=== PATIENT | female | born 2000 | race African-American/Black ===

== ENCOUNTER 2022-11-16 11:25 | Emergency (ER) | payer OTHER ==
[2022-11-16 11:49] VITALS: BP 129/75; PULSE 60; RESP 18; TEMP 98.4
--- NOTE | 2022-11-16 11:50 | ED ---
General Adult HPI - General Stated complaint: hives/rash Time Seen by Provider: 11/16/22 11:48 Source: patient, RN notes reviewed Mode of arrival: ambulatory Limitations: no limitations - History of Present Illness Initial comments: 22-year-old female presents emergency department for rash. Patient states she's had-like rash upper arm is not spreading. Patient states she has no difficulty breathing. Patient states she's. Itchy she believes she came in contact with something. Denies any contacts with some her symptoms. Denies any new soaps lotions detergents no new medications. Denies any new environments. - Related Data Home Medications Medication Instructions Recorded Confirmed No Known Home Medications 11/16/22 11/16/22 Previous Rx's Medication Instructions Recorded hydrOXYzine HCL [Atarax] 25 mg PO TID PRN #15 tab 11/16/22 predniSONE 50 mg PO DAILY #5 tab 11/16/22 Allergies Allergy/AdvReac Type Severity Reaction Status Date / Time No Known Allergies Allergy Verified 11/16/22 11:49 Review of Systems ROS Statement: Those systems with pertinent positive or pertinent negative responses have been documented in the HPI. ROS Other: All systems not noted in ROS Statement are negative. General Exam Limitations: no limitations General appearance: alert, in no apparent distress Head exam: Present: atraumatic, normocephalic, normal inspection Eye exam: Present: normal appearance, PERRL, EOMI. Absent: scleral icterus, conjunctival injection, periorbital swelling ENT exam: Present: normal exam, normal oropharynx, mucous membranes moist Neck exam: Present: normal inspection, full ROM. Absent: tenderness, menin gismus, lymphadenopathy Respiratory exam: Present: normal lung sounds bilaterally. Absent: respiratory distress, wheezes, rales, rhonchi, stridor Cardiovascular Exam: Present: regular rate, normal rhythm, normal heart sounds. Absent: systolic murmur, diastolic murmur, rubs, gallop, clicks Neurological exam: Present: alert Skin exam: Present: warm, dry, intact, normal color, rash Course Vital Signs 11/16/22 11:46 Temperature 98.4 F Pulse Rate 60 Respiratory 18 Rate Blood Pressure 129/75 O2 Sat by Pulse 99 Oximetry Medical Decision Making - Medical Decision Making Was pt. sent in by a medical professional or institution (, PA, CORRECTION OFFICER SUPERVISOR, urgent care, hospital, or alf...) When possible be specific @ -No Did you speak to anyone other than the patient for history (EMS, parent, family, police, friend...)? What history was obtained from this source @ -No Did you review nursing and triage notes (agree or disagree)? Why? @ -I reviewed and agree with nursing and triage notes Were old charts reviewed (outside hosp., previous admission, EMS record, old EKG, old radiological studies, urgent care reports/EKG's, alf records)? Report findings @ -No old charts were reviewed Differential Diagnosis (chest pain, altered mental status, abdominal pain women, abdominal pain men, vaginal bleeding, weakness, fever, dyspnea, syncope, headache, dizziness, GI bleed, back pain, seizure, CVA, palpatations, mental health, musculoskeletal)? @ -ALLERGIC reaction, scabies, bedbugs, medication reaction, this list is not on glycerin EKG interpreted by me (3pts min.). @ -None X-rays interpreted by me (1pt min.). @ -None done CT interpreted by me (1pt min.). @ -None done U/S interpreted by me (1pt. min.). @ -None done What testing was considered but not performed or refused? (CT, X-rays, U/S, labs)? Why? @ -None What meds were considered but not given or refused? Why? @ -None Did you discuss the management of the patient with other professionals (professionals i.e. , PA, CORRECTION OFFICER SUPERVISOR, lab, RT, psych nurse, social work coordinator, forest law and policy professor, teacher, dairy quality assurance officer, case management coordinator)? Give summary @ -No Was smoking cessation discussed for >3mins.? @ -No Was critical care preformed (if so, how long)? @ -No Were there social determinants of health that impacted care today? How? (Homelessness, low income, unemployed, alcoholism, drug addiction, transportation, low edu. Level, literacy, decrease access to med. care, alf, rehab)? @ -No Was there de-escalation of care discussed even if they declined (Discuss DNR or withdrawal of care, Hospice)? DNR status @ -No What co-morbidities impacted this encounter? (DM, HTN, Smoking, COPD, CAD, Cancer, CVA, ARF, Chemo, Hep., AIDS, mental health diagnosis, sleep apnea, morbid obesity)? @ -None Was patient admitted / discharged? Hospital course, mention meds given and route, prescriptions, significant lab abnormalities, going to OR and other pertinent info. @ -Discharge patient appears to have ALLERGIC reaction, contact dermatitis. Patient started prednisone was given Atarax for itching she can continue topical creams or use Benadryl as directed. Undiagnosed new problem with uncertain prognosis? @ -No Drug Therapy requiring intensive monitoring for toxicity (Heparin, Nitro, Insulin, Cardizem)? @ -No Were any procedures done? @ -No Diagnosis/symptom? @ -ALLERGIC reaction, contact dermatitis Acute, or Chronic, or Acute on Chronic? @ -Acute Uncomplicated (without systemic symptoms) or Complicated (systemic symptoms)? @ -Uncomplicated Side effects of treatment? @ -No Exacerbation, Progression, or Severe Exacerbation? @ -No Poses a threat to life or bodily function? How? (Chest pain, [place], [place], pneumonia, PE, COPD, DKA, ARF, appy, cholecystitis, CVA, Diverticulitis, Homicidal, Suicidal, threat to staff... and all critical care pts) @ -No Disposition Clinical Impression: Contact dermatitis, Allergic reaction Disposition: HOME SELF-CARE Condition: Stable Instructions (If sedation given, give patient instructions): General Allergic Reaction (ED) Additional Instructions: Please return to the Emergency Department if symptoms worsen or any other concerns. Prescriptions: hydrOXYzine HCL [Atarax] 25 mg PO TID PRN #15 tab PRN Reason: Itching predniSONE 50 mg PO DAILY #5 tab Is patient prescribed a controlled substance at d/c from ED?: No Referrals: None,Stated [Primary Care Provider] - 1-2 days Time of Disposition: 11:50
== END 2022-11-16 12:06 | disposition home or self-care (01) ==
LOC: EC 11:25
DX: L25.9 Unspecified contact dermatitis, unspecified cause (principal)
CPT/HCPCS: 99282

== ENCOUNTER 2022-11-17 20:43 | Emergency (ER) | payer OTHER ==
[2022-11-17 20:51] VITALS: RESP 18; TEMP 97.9
[2022-11-17] MEDS ORDERED: SODIUM CHLORIDE 0.9% 1,000 ML IV STA (21:32)
[2022-11-17] MEDS ORDERED: KETOROLAC 15 MG/ML 1 ML VIAL IVP STA (21:46)
[2022-11-17 22:21] LABS: Anisocytosis Slight; Basophils % (A) 0 %; Eosinophils % (A) 1 %; HCT 33.4 % (34.0-46.0); HGB 9.9 gm/dL (11.4-16.0); Hypochromasia Marked; Lymphocytes # (A) 0.6 k/uL (1.0-4.8); Lymphocytes % (A) 7 %; MCHC 29.6 g/dL (31.0-37.0); Mean Platelet Volume 7.4; Microcytosis Moderate; Monocytes # (A) 0.1 k/uL (0-1.0); Monocytes % (A) 2 %; Neutrophils % (A) 90 %; Platelet Count 289 k/uL (150-450); RBC 4.71 m/uL (3.80-5.40); RDW 16.5 % (11.5-15.5); WBC 7.8 k/uL (3.8-10.6)
[2022-11-17 22:29] LABS: INR 0.9 (<1.2); Partial Thromboplastin Time 22.2 sec (22.0-30.0); Prothrombin Time 9.7 sec (9.0-12.0)
[2022-11-17 22:37] LABS: Appearance,Urine Clear (Clear); Bacteria,Urine Rare /hpf; Bilirubin,Urine Negative (Negative); Blood,Urine Negative (Negative); Color,Urine Colorless; Glucose,Urine (UA) Negative (Negative); Ketones,Urine Negative (Negative); Leukocyte Esterase,Urine Small (Negative); Mucus,Urine Rare /hpf; Nitrite,Urine Negative (Negative); PH, Urine 7.5 (5.0-8.0); Protein,Urine Negative (Negative); RBC,Urine <1 /hpf (0-5); Specific Gravity,Urine 1.007 (1.001-1.035); Squamous Epithelial Cell,Urine 3 /hpf (0-4); Urobilinogen,Urine <2.0 mg/dL (<2.0); WBC,Urine 3 /hpf (0-5)
[2022-11-17 22:43] LABS: ALT 26 U/L (4-34); AST 24 U/L (14-36); African American GFR (CKD) >90 (>60 ml/min/1.73 sqM); Albumin 4.1 g/dL (3.5-5.0); Alkaline Phosphatase 64 U/L (38-126); Amylase 52 U/L (30-110); Anion Gap 10 mmol/L; Blood Urea Nitrogen 15 mg/dL (7-17); Calcium 9.2 mg/dL (8.4-10.2); Carbon Dioxide 22 mmol/L (22-30); Chloride 104 mmol/L (98-107); Glucose 115 mg/dL (74-99); Lipase 38 U/L (23-300); Non-African American GFR(CKD) >90 (>60 ml/min/1.73 sqM); Potassium 4.6 mmol/L (3.5-5.1); Sodium 136 mmol/L (137-145); Total Bilirubin 0.3 mg/dL (0.2-1.3); Total Protein 7.7 g/dL (6.3-8.2)
--- NOTE | 2022-11-17 23:18 | US ---
EXAMINATION TYPE: US renals and bladder DATE OF EXAM: 11/17/2022 COMPARISON: NONE CLINICAL INDICATION: Female, 22 years old with history of right flank pain; Right flank pain EXAM MEASUREMENTS: Right Kidney: 11.2 x 4.3 x 4.6 cm Left Kidney: 13.2 x 5.7 x 4.9 cm Right Kidney: No hydronephrosis or masses seen Left Kidney: No hydronephrosis or masses seen Bladder: wnl Bilateral Jets seen: Yes There is no evidence for hydronephrosis at this point in time. No nephrolithiasis is seen. No guicho s are identified. The urinary bladder is anechoic. Bilateral ureteral jets are seen. IMPRESSION: No obstructive uropathy.
--- NOTE | 2022-11-17 23:19 | US ---
EXAMINATION TYPE: US pelvis complete with doppler DATE OF EXAM: 11/17/2022 COMPARISON: NONE CLINICAL INDICATION: Female, 22 years old with history of right flank pain, evaluate for torsion; RLQ pain. TECHNIQUE: Transabdominal sonographic images of the pelvis were acquired. Pt refused transvaginal exam Date of LMP: 3 weeks ago EXAM MEASUREMENTS: Uterus: 10.1 x 6.3 x 3.5 cm Endometrial Stripe: 1.0 cm Right Ovary: Not sure if visualized. A lot of peristalsing bowel seen in rt adnexa Left Ovary: 3.0 x 1.9 x 1.6 cm 1. Uterus: Anteverted wnl 2. Endometrium: wnl 3. Right Ovary: Limited 4. Left Ovary: wnl Spectral, color and waveform doppler imaging shows good arterial and venous flow within the ovaries; there is no evidence for ovarian torsion. 5. Bilateral Adnexa: wnl 6. Posterior cul-de-sac: Some free fluid seen, presumably physiologic. IMPRESSION: 1. No evidence for acute pelvic process. 2. Nonvisualization of the right ovary secondary to bowel. MTDD
[2022-11-17 23:23] VITALS: BP 117/63; PULSE 67
--- NOTE | 2022-11-17 23:41 | ED ---
General Adult HPI - General Chief complaint: Abdominal Pain Stated complaint: Abdominal pain Time Seen by Provider: 11/17/22 21:24 Source: patient, RN notes reviewed, old records reviewed Mode of arrival: EMS Limitations: no limitations - History of Present Illness Initial comments: Patient is a 22-year-old female presents emergency Department complaining of abdominal pain. States it is on the right side of her abdomen and points to her right flank. It does not move. Worse with movement as well as with palpation at that site. Denies any nausea, vomiting, diarrhea, constipation. No other associated symptoms at this time. Denies any vaginal discharge or bleeding. No history of ovarian cysts or torsion. No urinary complaints. Presents for further evaluation of a concern for her pain. She is resting comfortably in bed at this time. - Related Data Home Medications Medication Instructions Recorded Confirmed No Known Home Medications 11/16/22 11/16/22 Previous Rx's Medication Instructions Recorded hydrOXYzine HCL [Atarax] 25 mg PO TID PRN #15 tab 11/16/22 predniSONE 50 mg PO DAILY #5 tab 11/16/22 Allergies Allergy/AdvReac Type Severity Reaction Status Date / Time No Known Allergies Allergy Verified 11/17/22 20:51 Review of Systems ROS Statement: Those systems with pertinent positive or pertinent negative responses have been documented in the HPI. Review of Systems: CONST: Denies fever EYES: Denies blurry vision ENT: Denies nasal congestion C/V: Denies Chest pain RESP: Denies shortness of breath GI: Endorses abdominal pain : Denies dysuria SKIN: Denies rash. MSK: Denies joint pain. NEURO: Denies headache ROS Other: All systems not noted in ROS Statement are negative. Past Medical History Past Medical History: No Reported History History of Any Multi-Drug Resistant Organisms: None Reported Past Surgical History: No Surgical Hx Reported Past Psychological History: No Psychological Hx Reported Smoking Status: Current every day smoker, Vaper Past Alcohol Use History: None Reported Past Drug Use History: Marijuana General Exam - General Exam Comments Initial Comments: General: Appears in no acute distress. HEAD: Normal with no signs of head trauma. EYES: EOMI ENT: Hearing grossly intact, normal oropharynx. RESPIRATORY: Clear breath sounds bilaterally. No wheezes, rales, or rhonchi. C/V: Regular rate and rhythm. S1 and S2 auscultated, no edema, peripheral pulses 2+ and intact throughout ABD: Abdomen soft, nontender, nondistended. Area of pain is in the right flank but minimal tenderness on palpation. No guarding. No peritoneal signs. No rebound tenderness. Unremarkable exam. No CVA tenderness to percussion. EXT: Normal range of motion, no obvious deformity SKIN: No rashes or lesions observed on exposed skin. NEURO: Alert and oriented 4. Limitations: no limitations Course Vital Signs 11/17/22 11/17/22 20:46 23:21 Temperature 97.9 F Pulse Rate 71 67 Respiratory 18 18 Rate Blood Pressure 144/75 117/63 O2 Sat by Pulse 98 99 Oximetry Medical Decision Making - Medical Decision Making Was pt. sent in by a medical professional or institution (, PA, FINANCIAL ADVOCATE, urgent care, hospital, or usp...) When possible be specific @ -No Did you speak to anyone other than the patient for history (EMS, parent, family, police, friend...)? What history was obtained from this source @ -No Did you review nursing and triage notes (agree or disagree)? Why? @ -I reviewed and agree with nursing and triage notes Were old charts reviewed (outside hosp., previous admission, EMS record, old EKG, old radiological studies, urgent care reports/EKG's, usp records)? Report findings @ -No old charts were reviewed Differential Diagnosis (chest pain, altered mental status, abdominal pain women, abdominal pain men, vaginal bleeding, weakness, fever, dyspnea, syncope, headache, dizziness, GI bleed, back pain, seizure, CVA, palpatations, mental health, musculoskeletal)? @ -Differential Abdominal Pain Women: Appendicitis, Cholecystitis, diverticulosis, ischemic bowel, pancreatitis, hepa titis, UTI, gastroenteritis, AAA, incarcerated hernia, bowel obstruction, constipation, inflammatory bowel, hepatitis, peptic ulcer disease, splenic infarction, perforated viscus, vulvitis, ovarian torsion, PID, kidney stone, placenta abruption, this is not meant to be an all-inclusive list EKG interpreted by me (3pts min.). @ -None done X-rays interpreted by me (1pt min.). @ -None done CT interpreted by me (1pt min.). @ -None done U/S interpreted by me (1pt. min.). @ -Pelvic ultrasound revealed no obvious evidence of torsion although diffic ulty with feeling the right ovary. Renal ultrasound revealed no evidence of hydronephrosis or stone. Interpreted by radiology. What testing was considered but not performed or refused? (CT, X-rays, U/S, labs)? Why? @ -None What meds were considered but not given or refused? Why? @ -None Did you discuss the management of the patient with other professionals (professionals i.e. , PA, FINANCIAL ADVOCATE, lab, RT, psych nurse, perinatal social worker, picture framer, teacher, complaint evaluation officer, insurance case manager)? Give summary @ -No Was smoking cessation discussed for >3mins.? @ -No Was critical care preformed (if so, how long)? @ -No Were there social determinants of health that impacted care today? How? (Homelessness, low income, unemployed, alcoholism, drug addiction, transportation, low edu. Level, literacy, decrease access to med. care, long term, rehab)? @ -No Was there de-escalation of care discussed even if they declined (Discuss DNR or withdrawal of care, Hospice)? DNR status @ -No What co-morbidities impacted this encounter? (DM, HTN, Smoking, COPD, CAD, Cancer, CVA, ARF, Chemo, Hep., AIDS, mental health diagnosis, sleep apnea, morbid obesity)? @ -None Was patient admitted / discharged? Hospital course, mention meds given and route, prescriptions, significant lab abnormalities, going to OR and other pertinent info. @ -Based on the patient's presentation and physical exam, patient presents complaining of abdominal pain of unknown etiology. Exam is unremarkable. Vital signs within normal limits. She is resting comfortably. He is in no distress. Appears to have right flank pain. We'll obtain abdominal labs as well as screening ultrasounds. Due to her age, we'll avoid CT imaging if possible. The family and patient were in agreement this plan. Patient was given a 1 L fluid bolus as well as IV Toradol for pain. Labs are remarkable for an anemia that is microcytic and likely chronic. Remainder of the labs are within acceptable limits. Lactic acid is within normal limits. Patient is not . Imaging is unremarkable although there was a difficult time evaluating and seeing the right ovary. I instructed the patient to follow up with their PCP in the next 1-3 days. I explained that the patient should return to the emergency department if they experience any worsening symptoms. Strict return precautions were discussed with the patient. The patient expressed understanding of these instructions. I answered all questions that the patient had. The patient was discharged home in good condition with their prescriptions and follow up information. Undiagnosed new problem with uncertain prognosis? @ -No Drug Therapy requiring intensive monitoring for toxicity (Heparin, Nitro, Insulin, Cardizem)? @ -No Were any procedures done? @ -No Diagnosis/symptom? @ -Abdominal pain of unknown etiology Acute, or Chronic, or Acute on Chronic? @ -Acute Uncomplicated (without systemic symptoms) or Complicated (systemic symptoms)? @ -Uncomplicated Side effects of treatment? @ -No Exacerbation, Progression, or Severe Exacerbation? @ -No Poses a threat to life or bodily function? How? (Chest pain, [place], [place], pneumonia, PE, COPD, DKA, ARF, appy, cholecystitis, CVA, Diverticulitis, Homicidal, Suicidal, threat to staff... and all critical care pts) @ -No Diagnosis/symptom? @ -Microcytic anemia Acute, or Chronic, or Acute on Chronic? @ -Unknown, likely chronic Uncomplicated (without systemic symptoms) or Complicated (systemic symptoms)? @ -Uncomplicated Side effects of treatment? @ -none Exacerbation, Progression, or Severe Exacerbation] @ -no Poses a threat to life or bodily function? @ -no - Lab Data Result diagrams: 11/17/22 21:59 11/17/22 21:59 Lab Results 11/17/22 11/17/22 11/17/22 Range/Units 21:05 21:05 21:59 WBC 7.8 (3.8-10.6) k/uL RBC 4.71 (3.80-5.40) m/uL Hgb 9.9 L (11.4-16.0) gm/dL Hct 33.4 L (34.0-46.0) % MCV 71.0 L (80.0-100.0) fL MCH 21.0 L (25.0-35.0) pg MCHC 29.6 L (31.0-37.0) g/dL RDW 16.5 H (11.5-15.5) % Plt Count 289 (150-450) k/uL MPV 7.4 Neutrophils % 90 % Lymphocytes % 7 % Monocytes % 2 % Eosinophils % 1 % Basophils % 0 % Neutrophils # 7.0 (1.3-7.7) k/uL Lymphocytes # 0.6 L (1.0-4.8) k/uL Monocytes # 0.1 (0-1.0) k/uL Eosinophils # 0.0 (0-0.7) k/uL Basophils # 0.0 (0-0.2) k/uL Hypochromasia Marked Anisocytosis Slight Microcytosis Moderate PT (9.0-12.0) sec INR (<1.2) APTT (22.0-30.0) sec Sodium (137-145) mmol/L Potassium (3.5-5.1) mmol/L Chloride (98-107) mmol/L Carbon Dioxide (22-30) mmol/L Anion Gap mmol/L BUN (7-17) mg/dL Creatinine (0.52-1.04) mg/dL Est GFR (CKD-EPI)AfAm (>60 ml/min/1.73 sqM) Est GFR (CKD-EPI)NonAf (>60 ml/min/1.73 sqM) Glucose (74-99) mg/dL Plasma Lactic Acid Amando (0.7-2.0) mmol/L Calcium (8.4-10.2) mg/dL Total Bilirubin (0.2-1.3) mg/dL AST (14-36) U/L ALT (4-34) U/L Alkaline Phosphatase (38-126) U/L Total Protein (6.3-8.2) g/dL Albumin (3.5-5.0) g/dL Amylase (30-110) U/L Lipase (23-300) U/L Urine Color Colorless Urine Appearance Clear (Clear) Urine pH 7.5 (5.0-8.0) Ur Specific [place] 1.007 (1.001-1.035) Urine Protein Negative (Negative) Urine Glucose (UA) Negative (Negative) Urine Ketones Negative (Negative) Urine Blood Negative (Negative) Urine Nitrite Negative (Negative) Urine Bilirubin Negative (Negative) Urine Urobilinogen <2.0 (<2.0) mg/dL Ur Leukocyte Esterase Small H (Negative) Urine RBC <1 (0-5) /hpf Urine WBC 3 (0-5) /hpf Ur Squamous Epith Cells 3 (0-4) /hpf Urine Bacteria Rare H (None) /hpf Urine Mucus Rare H (None) /hpf Urine HCG, Qual Not Detected (Not Detectd) 11/17/22 11/17/22 11/17/22 Range/Units 21:59 21:59 21:59 WBC (3.8-10.6) k/uL RBC (3.80-5.40) m/uL Hgb (11.4-16.0) gm/dL Hct (34.0-46.0) % MCV (80.0-100.0) fL MCH (25.0-35.0) pg MCHC (31.0-37.0) g/dL RDW (11.5-15.5) % Plt Count (150-450) k/uL MPV Neutrophils % % Lymphocytes % % Monocytes % % Eosinophils % % Basophils % % Neutrophils # (1.3-7.7) k/uL Lymphocytes # (1.0-4.8) k/uL Monocytes # (0-1.0) k/uL Eosinophils # (0-0.7) k/uL Basophils # (0-0.2) k/uL Hypochromasia Anisocytosis Microcytosis PT 9.7 (9.0-12.0) sec INR 0.9 (<1.2) APTT 22.2 (22.0-30.0) sec Sodium 136 L (137-145) mmol/L Potassium 4.6 (3.5-5.1) mmol/L Chloride 104 (98-107) mmol/L Carbon Dioxide 22 (22-30) mmol/L Anion Gap 10 mmol/L BUN 15 (7-17) mg/dL Creatinine 0.54 (0.52-1.04) mg/dL Est GFR (CKD-EPI)AfAm >90 (>60 ml/min/1.73 sqM) Est GFR (CKD-EPI)NonAf >90 (>60 ml/min/1.73 sqM) Glucose 115 H (74-99) mg/dL Plasma Lactic Acid Amando 0.7 (0.7-2.0) mmol/L Calcium 9.2 (8.4-10.2) mg/dL Total Bilirubin 0.3 (0.2-1.3) mg/dL AST 24 (14-36) U/L ALT 26 (4-34) U/L Alkaline Phosphatase 64 (38-126) U/L Total Protein 7.7 (6.3-8.2) g/dL Albumin 4.1 (3.5-5.0) g/dL Amylase 52 (30-110) U/L Lipase 38 (23-300) U/L Urine Color Urine Appearance (Clear) Urine pH (5.0-8.0) Ur Specific [place] (1.001-1.035) Urine Protein (Negative) Urine Glucose (UA) (Negative) Urine Ketones (Negative) Urine Blood (Negative) Urine Nitrite (Negative) Urine Bilirubin (Negative) Urine Urobilinogen (<2.0) mg/dL Ur Leukocyte Esterase (Negative) Urine RBC (0-5) /hpf Urine WBC (0-5) /hpf Ur Squamous Epith Cells (0-4) /hpf Urine Bacteria (None) /hpf Urine Mucus (None) /hpf Urine HCG, Qual (Not Detectd) Disposition Clinical Impression: Abdominal pain of unknown etiology, Microcytic anemia Disposition: HOME SELF-CARE Condition: Good Instructions (If sedation given, give patient instructions): Abdominal Pain (ED) Is patient prescribed a controlled substance at d/c from ED?: No Referrals: Nonstaff,Physician [Primary Care Provider] - 1-2 days Forms: Area PCPs Time of Disposition: 23:32
== END 2022-11-18 00:01 | disposition home or self-care (01) ==
LOC: EC 20:43
DX: D50.9 Iron deficiency anemia, unspecified (principal); R10.9 Unspecified abdominal pain; F17.290 Nicotine dependence, other tobacco product, uncomplicated; F12.90 Cannabis use, unspecified, uncomplicated
CPT/HCPCS: 36415; 80053; 82150; 83605; 83690; 85025; 85610; 85730; 81001; 81025; 76856; 76770; 99285; 96374; J1885; 76857; 93976

== ENCOUNTER 2022-12-11 04:57 | Emergency (ER) | payer OTHER ==
[2022-12-11 05:01] VITALS: RESP 18
--- NOTE | 2022-12-11 05:18 | ED ---
Extremity Problem HPI - General Source: patient, RN notes reviewed, old records reviewed Mode of arrival: ambulatory Limitations: no limitations - History of Present Illness MD Complaint: extremity pain, extremity swelling -: days(s) Location: right, lower extremity, knee -: Yes arthralgia Radiation: none Severity scale (1-10): 7 Quality: sharp Consistency: constant, intermittent Improves with: nothing Worsens with: nothing Associated Symptoms: denies other symptoms <Manny Armas - Last Filed: 12/11/22 05:16> <Symone Mello - Last Filed: 12/15/22 10:53> - General Chief complaint: Extremity Problem,Nontraumatic Stated complaint: Numbness and tingling in right leg Time Seen by Provider: 12/11/22 05:03 - History of Present Illness Initial comments: This is a 22-year-old female DF for evaluation of right lower Shorty pain tenderness Severe pain worse when she walks brings her to her knees. Patient states sometimes she cannot even take a step. No trauma no history of blood clot no shortness of breath or chest pain. No travel history sick contacts. (Manny Armas) - Related Data Home Medications Medication Instructions Recorded Confirmed No Known Home Medications 11/16/22 11/16/22 Previous Rx's Medication Instructions Recorded hydrOXYzine HCL [Atarax] 25 mg PO TID PRN #15 tab 11/16/22 predniSONE 50 mg PO DAILY #5 tab 11/16/22 Allergies Allergy/AdvReac Type Severity Reaction Status Date / Time No Known Allergies Allergy Verified 12/11/22 04:59 Review of Systems ROS Other: All systems not noted in ROS Statement are negative. <Manny Armas - Last Filed: 12/11/22 05:16> ROS Other: All systems not noted in ROS Statement are negative. <Symone Mello - Last Filed: 12/15/22 10:53> ROS Statement: Those systems with pertinent positive or pertinent negative responses have been documented in the HPI. Past Medical History Past Medical History: No Reported History History of Any Multi-Drug Resistant Organisms: None Reported Past Surgical History: No Surgical Hx Reported Past Psychological History: No Psychological Hx Reported Smoking Status: Current every day smoker, Vaper Past Alcohol Use History: None Reported Past Drug Use History: Marijuana <Manny Armas - Last Filed: 12/11/22 05:16> General Exam Limitations: no limitations General appearance: alert, in no apparent distress Head exam: Present: atraumatic, normocephalic, normal inspection Eye exam: Present: normal appearance, PERRL, EOMI. Absent: scleral icterus, conjunctival injection, periorbital swelling ENT exam: Present: normal exam, mucous membranes moist Neck exam: Present: normal inspection. Absent: tenderness, meningismus, lymphadenopathy Respiratory exam: Present: normal lung sounds bilaterally. Absent: respiratory distress, wheezes, rales, rhonchi, stridor Cardiovascular Exam: Present: regular rate, normal rhythm, normal heart sounds. Absent: systolic murmur, diastolic murmur, rubs, gallop, clicks GI/Abdominal exam: Present: soft, normal bowel sounds. Absent: distended, tenderness, guarding, rebound, rigid Extremities exam: Present: normal inspection, full ROM, normal capillary refill. Absent: tenderness, pedal edema, joint swelling, calf tenderness Back exam: Present: normal inspection Neurological exam: Present: alert, oriented X3, CN II-XII intact Psychiatric exam: Present: normal affect, normal mood Skin exam: Present: warm, dry, intact, normal color. Absent: rash <Manny Armas - Last Filed: 12/11/22 05:16> Course <Manny Armas - Last Filed: 12/11/22 05:16> Vital Signs 12/11/22 12/11/22 04:59 09:43 Temperature 97.2 F L 97.4 F L Pulse Rate 82 68 Respiratory 18 18 Rate Blood Pressure 124/77 122/84 O2 Sat by Pulse 98 98 Oximetry - Reevaluation(s) Reevaluation #1: 12/11/22 05:17 Medical records reviewed (Manny Armas) Reevaluation #4: 12/11/22 05:17 Was pt. sent in by a medical professional or institution? @ -no Did you speak to anyone other than the patient for history? @ -no Did you review nursing and triage notes? @ -agree Were old charts reviewed? @ -yes Differential Diagnosis? @ -prior EKG interpreted by me (3pts min.)? @ -yes X-rays interpreted by me (1pt min.)? @ -yes CT interpreted by me (1pt min.)? @ -no U/S interpreted by me (1pt. min.)? @ -no What testing was considered but not performed? (CT, X-rays, U/S, labs)? Why? @ -no What meds were considered but not given? Why? @ -no Did you discuss the management of the patient with other professionals? @ -no Did you reconcile home meds? @ -no Was smoking cessation discussed for >3mins.? @ -no Was critical care preformed (if so, how long)? @ -no Were there social determinants of health that impacted care today? How? (Homelessness, low income, unemployed, alcoholism, drug addiction, transportation, low edu. Level, literacy, decrease access to med. care, long-term, rehab)? @ -no Was there de-escalation of care discussed even if they declined? (Discuss DNR or withdrawal of care, Hospice)? @ -no What co-morbidities impacted this encounter? (DM, HTN, Smoking, COPD, CAD, Cancer, CVA, Hep., AIDS, mental health diagnosis, sleep apnea, morbid obesity)? @ -none Was patient admitted / discharged? @ - Undiagnosed new problem with uncertain prognosis? @ -no Drug Therapy requiring intensive monitoring for toxicity (Heparin, Nitro, Insulin, Cardizem)? @ -no Were any procedures done? @ -no Diagnosis/symptom? @ - Acute, or Chronic, or Acute on Chronic? @ -acute Uncomplicated (without systemic symptoms) or Complicated (systemic symptoms)? @ -complicated Side effects of treatment? @ -no Exacerbation, Progression, or Severe Exacerbation] @ -no Poses a threat to life or bodily function? @ -yes (Manny Armas) Medical Decision Making <Symone Mello - Last Filed: 12/15/22 10:53> - Medical Decision Making Patient signed out to me pending US. US negative for DVT. Patient comfortable for discharge home. (Symone Mello) Disposition <Manny Armas - Last Filed: 12/11/22 05:16> Is patient prescribed a controlled substance at d/c from ED?: No Time of Disposition: 09:11 <Symone Mello - Last Filed: 12/15/22 10:53> Clinical Impression: Leg pain Disposition: HOME SELF-CARE Condition: Stable Instructions (If sedation given, give patient instructions): Leg Pain (ED) Additional Instructions: Please follow-up with your primary care doctor for further testing. Return for any new or worsening symptoms Referrals: Tayo Esteban MD [Primary Care Provider] - 1-2 days
--- NOTE | 2022-12-11 08:38 | US ---
EXAMINATION TYPE: US venous doppler duplex LE RT DATE OF EXAM: 12/11/2022 7:46 AM COMPARISON: NONE CLINICAL INDICATION: Female, 22 years old with history of pain; rt leg numbness SIDE PERFORMED: Right TECHNIQUE: The lower extremity deep venous system is examined utilizing real time linear array sonog ariel with graded compression, doppler sonography and color-flow sonography. VESSELS IMAGED: Common Femoral Vein Deep Femoral Vein Greater Saphenous Vein * Femoral Vein Popliteal Vein Small Saphenous Vein * Proximal Calf Veins (* superficial vessels) Right Leg: Negative for DVT IMPRESSION: 1. Right lower extremity ultrasound negative for deep venous thrombosis
[2022-12-11 09:46] VITALS: BP 122/84; PULSE 68; TEMP 97.4
== END 2022-12-11 09:47 | disposition home or self-care (01) ==
LOC: EC 04:57
DX: M79.604 Pain in right leg (principal); F17.290 Nicotine dependence, other tobacco product, uncomplicated; F12.90 Cannabis use, unspecified, uncomplicated
CPT/HCPCS: 99284

== ENCOUNTER 2023-04-05 22:23 | Emergency (ER) | payer OTHER ==
--- NOTE | 2023-04-05 23:08 | ED ---
General Adult HPI - General Source: patient, police Mode of arrival: ambulatory <Manuel Castrejon - Last Filed: 04/06/23 00:33> <Irvni Puentes - Last Filed: 04/06/23 14:13> - General Chief complaint: Psychiatric Symptoms Stated complaint: Petition Time Seen by Provider: 04/05/23 22:59 - History of Present Illness Initial comments: Dictation was produced using [employer] dictation software. please excuse any grammatical, word or spelling errors. Chief Complaint: 23-year-old female presents with suicidal ideation History of Present Illness: Patient 23-year-old female presents to the ER for suicidal ideation and states that she has hand pain after punching a wall. She started to run into traffic. Brought in by piece officers for EPS evaluation. No homicidal ideation. States that she is very stressed out. The ROS documented in this emergency department record has been reviewed and confirmed by me. Those systems with pertinent positive or negative responses have been documented in the HPI. All other systems are other negative and/or noncontributory. (Manuel Castrejon) - Related Data Home Medications Medication Instructions Recorded Confirmed No Known Home Medications 11/16/22 04/06/23 Allergies Allergy/AdvReac Type Severity Reaction Status Date / Time No Known Allergies Allergy Verified 04/06/23 10:51 Review of Systems ROS Other: All systems not noted in ROS Statement are negative. <Manuel Castrejon - Last Filed: 04/06/23 00:33> ROS Other: All systems not noted in ROS Statement are negative. <Irvin Puentes - Last Filed: 04/06/23 14:13> ROS Statement: Those systems with pertinent positive or pertinent negative responses have been documented in the HPI. Past Medical History Past Medical History: No Reported History History of Any Multi-Drug Resistant Organisms: None Reported Past Surgical History: No Surgical Hx Reported Past Psychological History: No Psychological Hx Reported Smoking Status: Current every day smoker, Vaper Past Alcohol Use History: None Reported Past Drug Use History: Marijuana <Manuel Castrejon - Last Filed: 04/06/23 00:33> General Exam <Manuel Castrejon - Last Filed: 04/06/23 00:33> - General Exam Comments Initial Comments: PHYSICAL EXAM: General Impression: Alert and oriented x3, not in acute distress HEENT: Normocephalic atraumatic, extra-ocular movements intact, pupils equal and reactive to light bilaterally, mucous membranes moist. Cardiovascular: Heart regular rate and rhythm Chest: Able to complete full sentences, no retractions, no tachypnea Musculoskeletal: Pulses present and equal in all extremities, no peripheral edema Motor: no focal deficits noted Neurological: CN II-XII grossly intact, no focal motor or sensory deficits noted Skin: Intact with no visualized rashes Psych: Normal affect and mood Right hand: No obvious deformities, palpatory tenderness to the second and third MCP (Manuel Castrejon) Course Vital Signs 04/05/23 04/06/23 22:26 08:00 Temperature 98.8 F 98.1 F Pulse Rate 99 73 Respiratory 18 16 Rate Blood Pressure 143/75 138/83 O2 Sat by Pulse 97 98 Oximetry Medical Decision Making <Manuel Castrejon - Last Filed: 04/06/23 00:33> <Irvin Puentes - Last Filed: 04/06/23 14:13> - Medical Decision Making Was pt. sent in by a medical professional or institution (, PA, DIST[employer]ERY MILLER HELPER, urgent care, hospital, or snf...) When possible be specific @ -No Did you speak to anyone other than the patient for history (EMS, parent, family, police, friend...)? What history was obtained from this source @ -No Did you review nursing and triage notes (agree or disagree)? Why? @ -I reviewed and agree with nursing and triage notes Were old charts reviewed (outside hosp., previous admission, EMS record, old EKG, old radiological studies, urgent care reports/EKG's, snf records)? Report findings @ -No old charts were reviewed Differential Diagnosis (chest pain, altered mental status, abdominal pain women, abdominal pain men, vaginal bleeding, musculoskeletal, weakness, fever, dyspnea, syncope, headache, dizziness, GI bleed, back pain, seizure, CVA, palpatations, mental health)? @ -Differential Mental Health: Depression, anxiety, bipolar, psychosis, schizophrenia, borderline personality, situational depression, adjustment disorder, behavioral disorder, brain tumor, malingering, substance abuse, encephalopathy, medication reaction, dementia, hypothyroidism, degenerative neurologic disorder, lupus.... This is not meant to be all-inclusive list EKG interpreted by me (3pts min.). @ -None done X-rays interpreted by me (1pt min.). @ -X-ray of the right hand shows poor quality film possible carpal malalignment CT interpreted by me (1pt min.). @ -CT of the wrist shows no abnormalities U/S interpreted by me (1pt. min.). @ -None done What testing was considered but not performed or refused? (CT, X-rays, U/S, labs)? Why? @ -None What meds were considered but not given or refused? Why? @ -None Did you discuss the management of the patient with other professionals (professionals i.e. , PA, DIST[employer] M[employer]ER HELPER, lab, RT, psych nurse, social group worker, medical educator, teacher, chief accounting officer, case advocate)? Give summary @ -No Was smoking cessation discussed for >3mins.? @ -No Was critical care preformed (if so, how long)? @ -No Were there social determinants of health that impacted care today? How? (Homelessness, low income, unemployed, alcoholism, drug addiction, transportation, low edu. Level, literacy, decrease access to med. care, nursing home, rehab)? @ -No Was there de-escalation of care discussed even if they declined (Discuss DNR or withdrawal of care, Hospice)? DNR status @ -No What co-morbidities impacted this encounter? (DM, HTN, Smoking, COPD, CAD, Cancer, CVA, ARF, Chemo, Hep., AIDS, mental health diagnosis, sleep apnea, morbid obesity)? @ -None Was patient admitted / discharged? Hospital course, mention meds given and route, prescriptions, significant lab abnormalities, going to OR and other pertinent info. @ -23-year-old female presents to the ER for hand pain and suicidal ideation. Vital signs stable. Patient petitioned by law enforcement. Undiagnosed new problem with uncertain prognosis? @ -No Drug Therapy requiring intensive monitoring for toxicity (Heparin, Nitro, Insulin, Cardizem)? @ -No Were any procedures done? @ -No Diagnosis/symptom? Acute, or Chronic, or Acute on Chronic? Uncomplicated (without systemic symptoms) or Complicated (systemic symptoms)? @ -Suicidal ideation Side effects of treatment? @ -No Exacerbation, Progression, or Severe Exacerbation? @ -No Poses a threat to life or bodily function? How? (Chest pain, [place], [place], pneumonia, PE, COPD, DKA, ARF, appy, cholecystitis, CVA, Diverticulitis, Homicidal, Suicidal, threat to staff... and all critical care pts) @ -No (Manuel Castrejon) Patient was medically cleared by previous physician. Pending psychiatric evaluation. EPS notified me that she does not meet inpatient criteria. She'll be discharged home with a safety plan. I believe this is reasonable. Patient discharged home in good condition. (Irvin Puentes) Disposition <Manuel Castrejon - Last Filed: 04/06/23 00:33> Is patient prescribed a controlled substance at d/c from ED?: No <Irvin Puentes - Last Filed: 04/06/23 14:13> Clinical Impression: Suicidal ideation Disposition: HOME SELF-CARE Condition: Good Additional Instructions: follow safety plan. Referrals: None,Stated [Primary Care Provider] - 1-2 days
--- NOTE | 2023-04-05 23:27 | XR ---
EXAM: XR Right Hand Complete, 3 or More Views CLINICAL HISTORY: ITS.REASON XR Reason: hand pain after punching tree TECHNIQUE: Frontal, lateral and oblique views of the right hand. COMPARISON: No relevant prior studies available. FINDINGS: Bones/joints: Abnormal carpal alignment of the distal radius and proximal carpal row. CT scan recommended. No acute fracture. Soft tissues: Unremarkable. No radiopaque foreign body. IMPRESSION: Abnormal carpal alignment of the distal radius and proximal carpal row. CT scan recommended.
--- NOTE | 2023-04-06 00:10 | CT ---
EXAM: CT Right Upper Extremity Without Intravenous Contrast, Wrist CLINICAL HISTORY: ITS.REASON CT Reason: abnormal x-ray TECHNIQUE: Axial computed tomography images of the right wrist without intravenous contrast. CTDI is 8.6 mGy and DLP is 259 mGy-cm. This CT exam was performed using one or more of the following dose reduction techniques: automated exposure control, adjustment of the mA and/or kV according to patient size, and/or use of iterative reconstruction technique. COMPARISON: No relevant prior studies available. FINDINGS: Bones/joints: Carpal alignment is anatomic. No fracture. Abnormality on x-ray may have been secondary to patient positioning/projection. Soft tissues: Unremarkable. IMPRESSION: Carpal alignment is anatomic. No fracture. Abnormality on x-ray may have been secondary to patient positioning/projection.
[2023-04-06 08:23] VITALS: TEMP 98.1
[2023-04-06] MEDS ORDERED: ACETAMINOPHEN TAB 500 MG TAB PO STA (09:24)
[2023-04-06 14:32] VITALS: BP 127/84; PULSE 72; RESP 18
== END 2023-04-06 14:44 | disposition home or self-care (01) ==
LOC: EC 22:23
DX: R45.851 Suicidal ideations (principal); F17.290 Nicotine dependence, other tobacco product, uncomplicated; F12.90 Cannabis use, unspecified, uncomplicated
CPT/HCPCS: 82075; 99285

== ENCOUNTER 2023-05-19 05:44 | Emergency (ER) | payer OTHER ==
[2023-05-19 06:10] VITALS: PULSE 73
--- NOTE | 2023-05-19 06:25 | ED ---
SOB HPI - General Chief Complaint: Shortness of Breath Stated Complaint: SOB/chest pain Time Seen by Provider: 05/19/23 06:24 Source: patient, EMS, RN notes reviewed Mode of arrival: EMS Limitations: no limitations - History of Present Illness Initial Comments: 23-year-old female presents emergency from via EMS chief complaint shortness breath. Patient states she has centralized Chest discomfort. Patient denies any fever, leg symptoms. Patient states that she has slight pain only when she takes a deep breath. Denies any resting shortness breath or chest pain denies any leg pain or swelling No history DVT or PE no current control. - Related Data Home Medications Medication Instructions Recorded Confirmed No Known Home Medications 11/16/22 04/06/23 Allergies Allergy/AdvReac Type Severity Reaction Status Date / Time No Known Allergies Allergy Verified 05/19/23 05:47 Review of Systems ROS Statement: Those systems with pertinent positive or pertinent negative responses have been documented in the HPI. ROS Other: All systems not noted in ROS Statement are negative. Past Medical History Past Medical History: No Reported History History of Any Multi-Drug Resistant Organisms: None Reported Past Surgical History: No Surgical Hx Reported Past Psychological History: No Psychological Hx Reported Smoking Status: Current every day smoker, Vaper Past Alcohol Use History: None Reported Past Drug Use History: Marijuana General Exam - General Exam Comments Initial Comments: Visual Physical Exam Vital signs reviewed General: Well-appearing, nontoxic, no acute distress. Head: Normocephalic, atraumatic Eyes: PERRLA, EOMI ENT: Airway patent Chest: Nonlabored breathing Skin: No visual rash, normal skin tone Neuro: Alert and oriented 3 Musculoskeletal: No gross abnormalities Limitations: no limitations General appearance: alert, in no apparent distress Head exam: Present: atraumatic, normocephalic, normal inspection Eye exam: Present: normal appearance, PERRL, EOMI. Absent: scleral icterus, conjunctival injection, periorbital swelling ENT exam: Present: normal exam, normal oropharynx, mucous membranes moist Neck exam: Present: normal inspection, full ROM. Absent: tenderness, meningismus, lymphadenopathy Respiratory exam: Present: normal lung sounds bilaterally, chest wall tenderness (Anterior chest wall). Absent: respiratory distress, wheezes, rales, rhonchi, stridor Cardiovascular Exam: Present: regular rate, normal rhythm, normal heart sounds. Absent: systolic murmur, diastolic murmur, rubs, gallop, clicks Course Vital Signs 05/19/23 05/19/23 05/19/23 05:47 07:33 07:35 Temperature 97.9 F 98.1 F Pulse Rate 73 73 Respiratory 18 17 17 Rate Blood Pressure 138/70 130/65 O2 Sat by Pulse 98 100 Oximetry Medical Decision Making - Medical Decision Making I completed the quick note portion of this chart signed Waylon Mcleod PA-C Was pt. sent in by a medical professional or institution (DAVIE Lozano, LIBRARY MONITOR, urgent care, hospital, or assisted...) When possible be specific @ -No Did you speak to anyone other than the patient for history (EMS, parent, family, police, friend...)? What history was obtained from this source @ -No Did you review nursing and triage notes (agree or disagree)? Why? @ -I reviewed and agree with nursing and triage notes Were old charts reviewed (outside hosp., previous admission, EMS record, old EKG, old radiological studies, urgent care reports/EKG's, assisted records)? Report findings @ -No old charts were reviewed Differential Diagnosis (chest pain, altered mental status, abdominal pain women, abdominal pain men, vaginal bleeding, weakness, fever, dyspnea, syncope, headache, dizziness, GI bleed, back pain, seizure, CVA, palpatations, mental health, musculoskeletal)? @ -Differential Chest Pain: Stable Angina, Unstable Angina, STEMI, NSTEMI Aortic Dissection, Pneumothorax, Musculoskeletal, Esophageal Spasm GERD, Cholecystitis, Pancreatitis, Zoster, this is not meant to be an all-inclusive list. ble EKG interpreted by me (3pts min.). @ -As above X-rays interpreted by me (1pt min.). @ -Chest x-ray shows no acute cardiopulmonary process CT interpreted by me (1pt min.). @ -None done U/S interpreted by me (1pt. min.). @ -None done What testing was considered but not performed or refused? (CT, X-rays, U/S, l abs)? Why? @ -None What meds were considered but not given or refused? Why? @ -None Did you discuss the management of the patient with other professionals (professionals i.e. DAVIE Lzoano, LIBRARY MONITOR, lab, RT, psych nurse, oncology social worker, per diem physical therapist assistant, teacher, ambulance officer, corrections caseworker)? Give summary @ -No Was smoking cessation discussed for >3mins.? @ -No Was critical care preformed (if so, how long)? @ -No Were there social determinants of health that impacted care today? How? (Homelessness, low income, unemployed, alcoholism, drug addiction, transportation, low edu. Level, literacy, decrease access to med. care, halfway, rehab)? @ -No Was there de-escalation of care discussed even if they declined (Discuss DNR or withdrawal of care, Hospice)? DNR status @ -No What co-morbidities impacted this encounter? (DM, HTN, Smoking, COPD, CAD, Cance r, CVA, ARF, Chemo, Hep., AIDS, mental health diagnosis, sleep apnea, morbid obesity)? @ -None Was patient admitted / discharged? Hospital course, mention meds given and route, prescriptions, significant lab abnormalities, going to OR and other pertinent info. @ -Discharge patient for concluding labs or x-rays, EKG, chest x-ray viral swabbing. Patient has no acute findings. Patient does have pleuritic reproducible chest wall symptoms. Patient will be discharged in stable condition with close follow-up is to be patient will be advised to continue anti-inflammatories. Return parameters were discussed patient agrees to plan of discharge. Patient has no cardiac risk factors. Undiagnosed new problem with uncertain prognosis? @ -No Drug Therapy requiring intensive monitoring for toxicity (Heparin, Nitro, Insulin, Cardizem)? @ -No Were any procedures done? @ -No Diagnosis/symptom? @ -Chest wall pain, pleuritic chest pain Acute, or Chronic, or Acute on Chronic? @ -Acute Uncomplicated (without systemic symptoms) or Complicated (systemic symptoms)? @ -Uncomplicated Side effects of treatment? @ -No Exacerbation, Progression, or Severe Exacerbation? @ -No Poses a threat to life or bodily function? How? (Chest pain, USA, [place], pneumonia, PE, COPD, DKA, ARF, appy, cholecystitis, CVA, Diverticulitis, Homicidal, Suicidal, threat to staff... and all critical care pts) @ -No - Lab Data Result diagrams: 05/19/23 06:23 05/19/23 06:23 Lab Results 05/19/23 05/19/23 05/19/23 Range/Units 05:53 06:23 06:23 WBC 3.9 (3.8-10.6) k/uL RBC 4.67 (3.80-5.40) m/uL Hgb 10.0 L (11.4-16.0) gm/dL Hct 33.8 L (34.0-46.0) % MCV 72.3 L (80.0-100.0) fL MCH 21.4 L (25.0-35.0) pg MCHC 29.6 L (31.0-37.0) g/dL RDW 17.1 H (11.5-15.5) % Plt Count 214 (150-450) k/uL MPV 8.1 Neutrophils % 53 % Lymphocytes % 34 % Monocytes % 8 % Eosinophils % 1 % Basophils % 0 % Neutrophils # 2.1 (1.3-7.7) k/uL Lymphocytes # 1.3 (1.0-4.8) k/uL Monocytes # 0.3 (0-1.0) k/uL Eosinophils # 0.1 (0-0.7) k/uL Basophils # 0.0 (0-0.2) k/uL Hypochromasia Marked Anisocytosis Slight Microcytosis Moderate D-Dimer 0.57 (<0.60) mg/L FEU Sodium (137-145) mmol/L Potassium (3.5-5.1) mmol/L Chloride (98-107) mmol/L Carbon Dioxide (22-30) mmol/L Anion Gap mmol/L BUN (7-17) mg/dL Creatinine (0.52-1.04) mg/dL Est GFR (CKD-EPI)AfAm (>60 ml/min/1.73 sqM) Est GFR (CKD-EPI)NonAf (>60 ml/min/1.73 sqM) Glucose (74-99) mg/dL Calcium (8.4-10.2) mg/dL Total Bilirubin (0.2-1.3) mg/dL AST (14-36) U/L ALT (4-34) U/L Alkaline Phosphatase (38-126) U/L Total Protein (6.3-8.2) g/dL Albumin (3.5-5.0) g/dL Influenza Type A (PCR) Not Detected (Not Detectd) Influenza Type B (PCR) Not Detected (Not Detectd) RSV (PCR) Not Detected (Not Detectd) SARS-CoV-2 (PCR) Not Detected (Not Detectd) 05/19/23 Range/Units 06:23 WBC (3.8-10.6) k/uL RBC (3.80-5.40) m/uL Hgb (11.4-16.0) gm/dL Hct (34.0-46.0) % MCV (80.0-100.0) fL MCH (25.0-35.0) pg MCHC (31.0-37.0) g/dL RDW (11.5-15.5) % Plt Count (150-450) k/uL MPV Neutrophils % % Lymphocytes % % Monocytes % % Eosinophils % % Basophils % % Neutrophils # (1.3-7.7) k/uL Lymphocytes # (1.0-4.8) k/uL Monocytes # (0-1.0) k/uL Eosinophils # (0-0.7) k/uL Basophils # (0-0.2) k/uL Hypochromasia Anisocytosis Microcytosis D-Dimer (<0.60) mg/L FEU Sodium 137 (137-145) mmol/L Potassium 3.7 (3.5-5.1) mmol/L Chloride 106 (98-107) mmol/L Carbon Dioxide 20 L (22-30) mmol/L Anion Gap 11 mmol/L BUN 10 (7-17) mg/dL Creatinine 0.49 L (0.52-1.04) mg/dL Est GFR (CKD-EPI)AfAm >90 (>60 ml/min/1.73 sqM) Est GFR (CKD-EPI)NonAf >90 (>60 ml/min/1.73 sqM) Glucose 95 (74-99) mg/dL Calcium 8.8 (8.4-10.2) mg/dL Total Bilirubin 0.3 (0.2-1.3) mg/dL AST 24 (14-36) U/L ALT 18 (4-34) U/L Alkaline Phosphatase 46 (38-126) U/L Total Protein 7.0 (6.3-8.2) g/dL Albumin 3.8 (3.5-5.0) g/dL Influenza Type A (PCR) (Not Detectd) Influenza Type B (PCR) (Not Detectd) RSV (PCR) (Not Detectd) SARS-CoV-2 (PCR) (Not Detectd) Disposition Clinical Impression: Chest wall pain, Pleuritic chest pain Disposition: HOME SELF-CARE Condition: Stable Instructions (If sedation given, give patient instructions): Chest Pain (ED), Costochondritis (ED) Additional Instructions: Please return to the Emergency Department if symptoms worsen or any other concerns. Is patient prescribed a controlled substance at d/c from ED?: No Referrals: None,Stated [Primary Care Provider] - 1-2 days Time of Disposition: 07:47
[2023-05-19 06:42] LABS: Anisocytosis Slight; Basophils % (A) 0 %; Eosinophils # (A) 0.1 k/uL (0-0.7); Eosinophils % (A) 1 %; HCT 33.8 % (34.0-46.0); Hypochromasia Marked; Lymphocytes # (A) 1.3 k/uL (1.0-4.8); Lymphocytes % (A) 34 %; MCH 21.4 pg (25.0-35.0); MCHC 29.6 g/dL (31.0-37.0); MCV 72.3 fL (80.0-100.0); Mean Platelet Volume 8.1; Microcytosis Moderate; Monocytes # (A) 0.3 k/uL (0-1.0); Monocytes % (A) 8 %; Neutrophils # (A) 2.1 k/uL (1.3-7.7); Neutrophils % (A) 53 %; Platelet Count 214 k/uL (150-450); RBC 4.67 m/uL (3.80-5.40); RDW 17.1 % (11.5-15.5); WBC 3.9 k/uL (3.8-10.6)
[2023-05-19 07:03] LABS: ALT 18 U/L (4-34); AST 24 U/L (14-36); African American GFR (CKD) >90 (>60 ml/min/1.73 sqM); Albumin 3.8 g/dL (3.5-5.0); Alkaline Phosphatase 46 U/L (38-126); Anion Gap 11 mmol/L; Blood Urea Nitrogen 10 mg/dL (7-17); Calcium 8.8 mg/dL (8.4-10.2); Carbon Dioxide 20 mmol/L (22-30); Chloride 106 mmol/L (98-107); Glucose 95 mg/dL (74-99); Non-African American GFR(CKD) >90 (>60 ml/min/1.73 sqM); Potassium 3.7 mmol/L (3.5-5.1); Sodium 137 mmol/L (137-145); Total Bilirubin 0.3 mg/dL (0.2-1.3)
--- NOTE | 2023-05-19 07:34 | XR ---
EXAMINATION TYPE: XR chest 2V DATE OF EXAM: 05/19/2023 COMPARISON: NONE HISTORY: Chest pain TECHNIQUE: Frontal and lateral views of the chest are obtained. FINDINGS: There is no focal air space opacity. No evidence for pneumothorax. No pleural effusion. The cardiac silhouette size is within normal limits. The osseous structures are grossly intact. IMPRESSION: 1. No acute cardiopulmonary process.
[2023-05-19 07:47] VITALS: BP 130/65; RESP 17; TEMP 98.1
== END 2023-05-19 07:53 | disposition home or self-care (01) ==
LOC: EC 05:44
DX: R07.89 Other chest pain (principal); F12.90 Cannabis use, unspecified, uncomplicated; F17.290 Nicotine dependence, other tobacco product, uncomplicated; Z20.822 Contact with and (suspected) exposure to COVID-19
CPT/HCPCS: 36415; 71046; 80053; 85025; 85379; 87636; 93005; 99285

== ENCOUNTER 2023-06-07 13:05 | Emergency (ER) | payer OTHER ==
--- NOTE | 2023-06-07 13:30 | ED ---
URI HPI - General Source: patient, RN notes reviewed <Gwen Solano - Last Filed: 06/07/23 13:29> <Wilder Zelaya - Last Filed: 06/09/23 19:19> - General Stated Complaint: Chest Pressure, Sob Time Seen by Provider: 06/07/23 13:30 - History of Present Illness Initial Comments: Patient is a 23-year-old female presented ER with chief complaint of not feeling well. Patient states for the past day she has not been feeling well. Patient states she is also having some shortness of breath and chest pressure. Patient stat she has been having a cough and chills as well. (Gwen Solano) [id number] female presenting with chief complaint of chest discomfort. Patient states that she has not been feeling well for the last day or so. She states that she has had chest pain on and off for 3 years which has been worse over the last few months. She states that it is worse with deep breaths. Located in the center of the chest pain is reproducible upon palpation. She has had a cough with some chills as well. She is requesting a refill of her albuterol inhaler. She is currently in the process of finding a new PCP. No palpitations, numbness, tingling, nausea, vomiting, abdominal pain, lower extremity swelling, OCP use, recent surgery or long travel. (Wilder Zelaya) - Related Data Previous Rx's Medication Instructions Recorded Albuterol Sulfate [Albuterol 1 puff PO Q4-6H PRN #8.5 gm 06/07/23 Sulfate Hfa] Albuterol Sulfate [Albuterol 1 puff PO Q4-6H PRN #8.5 gm 06/07/23 Sulfate Hfa] Allergies Allergy/AdvReac Type Severity Reaction Status Date / Time No Known Allergies Allergy Verified 06/07/23 18:48 Review of Systems ROS Other: All systems not noted in ROS Statement are negative. <Gwen Solano - Last Filed: 06/07/23 13:29> ROS Other: All systems not noted in ROS Statement are negative. <Wilder Zelaya - Last Filed: 06/09/23 19:19> ROS Statement: Those systems with pertinent positive or pertinent negative responses have been documented in the HPI. Past Medical History Past Medical History: No Reported History History of Any Multi-Drug Resistant Organisms: None Reported Past Surgical History: No Surgical Hx Reported Past Psychological History: No Psychological Hx Reported Smoking Status: Current every day smoker, Vaper Past Alcohol Use History: None Reported Past Drug Use History: Marijuana <Gwen Solano - Last Filed: 06/07/23 13:29> General Exam <Gwen Solano - Last Filed: 06/07/23 13:29> Limitations: no limitations General appearance: alert, in no apparent distress Head exam: Present: atraumatic, normocephalic Eye exam: Present: normal appearance Neck exam: Present: normal inspection Respiratory exam: Present: normal lung sounds bilaterally, chest wall tenderness. Absent: respiratory distress, wheezes, rales, rhonchi, stridor Cardiovascular Exam: Present: regular rate, normal rhythm, normal heart sounds. Absent: systolic murmur, diastolic murmur, rubs, gallop, clicks Extremities exam: Absent: pedal edema Neurological exam: Present: alert, oriented X3 Psychiatric exam: Present: normal affect, normal mood Skin exam: Present: warm, dry <Wilder Zelaya - Last Filed: 06/09/23 19:19> - General Exam Comments Initial Comments: Visual Physical Exam Vital signs reviewed General: Well-appearing, nontoxic, no acute distress. Head: Normocephalic, atraumatic Eyes: PERRLA, EOMI ENT: Airway patent Chest: Nonlabored breathing Skin: No visual rash, normal skin tone Neuro: Alert and oriented 3 Musculoskeletal: No gross abnormalities (Gwen Solano) Course Vital Signs 06/07/23 06/07/23 14:32 19:17 Temperature 98.0 F 98.2 F Pulse Rate 87 74 Respiratory 18 16 Rate Blood Pressure 155/84 128/78 O2 Sat by Pulse 99 98 Oximetry Medical Decision Making <Gwen Solano - Last Filed: 06/07/23 13:29> <Wilder Zelaya - Last Filed: 06/09/23 19:19> - Medical Decision Making I performed the quick note portion of the exam. Electronically signed by Gwen Solano PA-C (Gwen Solano) Was pt. sent in by a medical professional or institution (DAVIE Lozano, LEATHER SCRUBBER, urgent care, hospital, or halfway...) When possible be specific @ -No Did you speak to anyone other than the patient for history (EMS, parent, family, police, friend...)? What history was obtained from this source @ -No Did you review nursing and triage notes (agree or disagree)? Why? @ -I reviewed and agree with nursing and triage notes Were old charts reviewed (outside hosp., previous admission, EMS record, old EKG, old radiological studies, urgent care reports/EKG's, halfway records)? Report findings @ -No old charts were reviewed Differential Diagnosis (chest pain, altered mental status, abdominal pain women, abdominal pain men, vaginal bleeding, weakness, fever, dyspnea, syncope, headache, dizziness, GI bleed, back pain, seizure, CVA, palpatations, mental health, musculoskeletal)? @ -MDM Differential Chest Pain: Stable Angina, Unstable Angina, STEMI, NSTEMI Aortic Dissection, Pneumothorax, Musculoskeletal, Esophageal Spasm GERD, Cholecystitis, Pancreatitis, Zoster This is not meant to be an all-inclusive list. EKG interpreted by me (3pts min.). @ -Sinus rhythm ventricular rate 82. ME interval 158. QRS 105. QT 350. QTc 389. X-rays interpreted by me (1pt min.). @ -Chest x-ray shows no acute process CT interpreted by me (1pt min.). @ -None done U/S interpreted by me (1pt. min.). @ -None done What testing was considered but not performed or refused? (CT, X-rays, U/S, labs)? Why? @ -None What meds were considered but not given or refused? Why? @ -None Did you discuss the management of the patient with other professionals (professionals i.e. DAVIE Lozano, LEATHER SCRUBBER, lab, RT, psych nurse, secondary social studies teacher, sprinkler driver, teacher, senior vice president and chief information officer, caser)? Give summary @ -No Was smoking cessation discussed for >3mins.? @ -No Was critical care preformed (if so, how long)? @ -No Were there social determinants of health that impacted care today? How? (Homelessness, low income, unemployed, alcoholism, drug addiction, transportation, low edu. Level, literacy, decrease access to med. care, custodial, rehab)? @ -No Was there de-escalation of care discussed even if they declined (Discuss DNR or withdrawal of care, Hospice)? DNR status @ -No What co-morbidities impacted this encounter? (DM, HTN, Smoking, COPD, CAD, Cancer, CVA, ARF, Chemo, Hep., AIDS, mental health diagnosis, sleep apnea, morbid obesity)? @ -None Was patient admitted / discharged? Hospital course, mention meds given and route, prescriptions, significant lab abnormalities, going to OR and other pertinent info. @ -23-year-old female presenting with chief complaint of chest pain for the last 3 years which has been more pronounced over the last few months. Just states she has not been feeling well the past few days. On physical exam her lungs are clear to auscultation, no lower extremity swelling, pain is reproducible on palpation. Vital signs are WNL. She is negative for influenza, RSV, and Covid. Chest x-ray shows no acute process. PERC negative. Patient will be discharged home and is instructed to follow-up with PCP. Follow-up with PCP. Report back to ER with any new or worsening symptoms. Discussed return parameters and answered all questions. Patient conveyed verbal understanding and agreed to the plan. I discussed this case in detail with my attending Dr. Armas Undiagnosed new problem with uncertain prognosis? @ -No Drug Therapy requiring intensive monitoring for toxicity (Heparin, Nitro, Insulin, Cardizem)? @ -No Were any procedures done? @ -No Diagnosis/symptom? @ -Costochondritis Acute, or Chronic, or Acute on Chronic? @ -Acute Uncomplicated (without systemic symptoms) or Complicated (systemic symptoms)? @ -uncomplicated Side effects of treatment? @ -No Exacerbation, Progression, or Severe Exacerbation? @ -No Poses a threat to life or bodily function? How? (Chest pain, USA, OR, pneumonia, PE, COPD, DKA, ARF, appy, cholecystitis, CVA, Diverticulitis, Homicidal, Suicidal, threat to staff... and all critical care pts) @ -Low likelihood (Wilder Zelaya) - Lab Data Lab Results 06/07/23 Range/Units 14:37 Influenza Type A (PCR) Not Detected (Not Detectd) Influenza Type B (PCR) Not Detected (Not Detectd) RSV (PCR) Not Detected (Not Detectd) SARS-CoV-2 (PCR) Not Detected (Not Detectd) Disposition <Gwen Solano - Last Filed: 06/07/23 13:29> Is patient prescribed a controlled substance at d/c from ED?: No Time of Disposition: 19:07 <Wilder Zelaya - Last Filed: 06/09/23 19:19> Clinical Impression: Costochondritis Disposition: HOME SELF-CARE Condition: Good Instructions (If sedation given, give patient instructions): Chest Pain (ED), Costochondritis (ED) Additional Instructions: Follow-up with PCP. Report back to ER with any new or worsening symptoms. Take Motrin and Tylenol as needed for pain control. Prescriptions: Albuterol Sulfate [Albuterol Sulfate Hfa] 1 puff PO Q4-6H PRN #8.5 gm PRN Reason: Shortness Of Breath Albuterol Sulfate [Albuterol Sulfate Hfa] 1 puff PO Q4-6H PRN #8.5 gm PRN Reason: Shortness Of Breath Referrals: None,Stated [Primary Care Provider] - 1-2 days Hamlet Aiken MD [STAFF PHYSICIAN] - 1-2 days Sim Cisneros MD [STAFF PHYSICIAN] - 1-2 days
--- NOTE | 2023-06-07 15:48 | XR ---
EXAMINATION TYPE: XR chest 2V DATE OF EXAM: 06/07/2023 3:37 PM CLINICAL INDICATION:Female, 23 years old with history of cough; [facility] COMPARISON: Chest radiographs from 05/19/2023. TECHNIQUE: XR chest 2V Frontal and lateral views of the chest. FINDINGS: Lungs/Pleura: There is no evidence of pleural effusion, focal consolidation, or pneumothorax. Pulmonary vascularity: Unremarkable. Heart/mediastinum: Cardiomediastinal silhouette is unremarkable. Musculoskeletal: No acute osseous pathology. IMPRESSION: No acute cardiopulmonary disease/process.
[2023-06-07 19:29] VITALS: BP 128/78; PULSE 74; RESP 16; TEMP 98.2
== END 2023-06-07 19:16 | disposition home or self-care (01) ==
LOC: EC 13:05
DX: M94.0 Chondrocostal junction syndrome [Tietze] (principal); F17.290 Nicotine dependence, other tobacco product, uncomplicated; F12.90 Cannabis use, unspecified, uncomplicated; Z20.822 Contact with and (suspected) exposure to COVID-19
CPT/HCPCS: 71046; 87636; 99285

== ENCOUNTER 2023-07-04 13:50 | Emergency (ER) | payer OTHER ==
[2023-07-04 14:43] VITALS: RESP 18; TEMP 98
--- NOTE | 2023-07-04 15:27 | ED ---
General Adult HPI - General Chief complaint: Dizziness Stated complaint: Dizziness Time Seen by Provider: 07/04/23 15:26 Source: patient, RN notes reviewed Mode of arrival: ambulatory Limitations: no limitations - History of Present Illness Initial comments: 23 year old female presents to the emergency department for evaluation of dizziness, nausea, vomiting. Patient reports that she is and believes that she is around 8 weeks. [facility] 04/08/23. She reports frequent nausea with vomiting. Patient reports spinning sensation over the past 3 days. Admits to taking tylenol for headache with no relief although she has not taken any today. She denies recent fever, chills, vaginal bleeding or cramping. - Related Data Previous Rx's Medication Instructions Recorded Albuterol Sulfate [Albuterol 1 puff PO Q4-6H PRN #8.5 gm 06/07/23 Sulfate Hfa] Albuterol Sulfate [Albuterol 1 puff PO Q4-6H PRN #8.5 gm 06/07/23 Sulfate Hfa] Cephalexin [Keflex] 500 mg PO BID #20 cap 07/04/23 Allergies Allergy/AdvReac Type Severity Reaction Status Date / Time No Known Allergies Allergy Verified 07/04/23 14:26 Review of Systems ROS Statement: Those systems with pertinent positive or pertinent negative responses have been documented in the HPI. ROS Other: All systems not noted in ROS Statement are negative. Past Medical History Past Medical History: Asthma History of Any Multi-Drug Resistant Organisms: None Reported Past Surgical History: No Surgical Hx Reported Past Psychological History: No Psychological Hx Reported Smoking Status: Current every day smoker, Vaper Past Alcohol Use History: None Reported Past Drug Use History: Marijuana General Exam - General Exam Comments Initial Comments: Visual Physical Exam Vital signs reviewed General: Well-appearing, nontoxic, no acute distress. Head: Normocephalic, atraumatic Eyes: PERRLA, EOMI ENT: Airway patent Chest: Nonlabored breathing Skin: No visual rash, normal skin tone Neuro: Alert and oriented 3 Musculoskeletal: No gross abnormalities Limitations: no limitations General appearance: alert, in no apparent distress Head exam: Present: atraumatic, normocephalic, normal inspection Eye exam: Present: normal appearance, PERRL, EOMI. Absent: scleral icterus, conjunctival injection, periorbital swelling ENT exam: Present: normal exam, mucous membranes moist Neck exam: Present: normal inspection. Absent: tenderness, meningismus, lymphadenopathy Respiratory exam: Present: normal lung sounds bilaterally. Absent: respiratory distress, wheezes, rales, rhonchi, stridor Cardiovascular Exam: Present: regular rate, normal rhythm, normal heart sounds. Absent: systolic murmur, diastolic murmur, rubs, gallop, clicks GI/Abdominal exam: Present: soft, normal bowel sounds. Absent: distended, tenderness, guarding, rebound, rigid Extremities exam: Present: normal inspection, full ROM, normal capillary refill. Absent: tenderness, pedal edema, joint swelling, calf tenderness Back exam: Present: normal inspection Neurological exam: Present: alert, oriented X3, CN II-XII intact Psychiatric exam: Present: normal affect, normal mood Skin exam: Present: warm, dry, intact, normal color. Absent: rash Course Vital Signs 07/04/23 07/04/23 14:24 19:49 Temperature 98 F Pulse Rate 70 81 Respiratory 18 18 Rate Blood Pressure 113/68 121/69 O2 Sat by Pulse 100 99 Oximetry Medical Decision Making - Medical Decision Making Quick note preformed by Tia Lee PA-C Was pt. sent in by a medical professional or institution (DAVIE Lozano, COMMERCIAL FRONT LOAD OPERATOR, urgent care, hospital, or assisted...) When possible be specific @ -No Did you speak to anyone other than the patient for history (EMS, parent, family, police, friend...)? What history was obtained from this source @ -No Did you review nursing and triage notes (agree or disagree)? Why? @ -I reviewed and agree with nursing and triage notes Were old charts reviewed (outside hosp., previous admission, EMS record, old EKG, old radiological studies, urgent care reports/EKG's, assisted records)? Report findings @ -No old charts were reviewed Differential Diagnosis (chest pain, altered mental status, abdominal pain women, abdominal pain men, vaginal bleeding, weakness, fever, dyspnea, syncope, headache, dizziness, GI bleed, back pain, seizure, CVA, palpatations, mental health, musculoskeletal)? @ -Differential Dizziness: Benign paroxysmal positional Vertigo, Menieres disease, otitis media, acoustic neuroma, vertebrobasilar insufficiency, cerebellar stroke, encephalitis, hypovolemic, arrhythmia, coronary artery syndrome, anemia, this is not meant to be an all-inclusive list EKG interpreted by me (3pts min.). @ -EKG@1740 shows sinus rhythm rate 71, NE 175, QRS 97, QTQTc 4034 25 X-rays interpreted by me (1pt min.). @ -None done CT interpreted by me (1pt min.). @ -None done U/S interpreted by me (1pt. min.). @ -None done What testing was considered but not performed or refused? (CT, X-rays, U/S, labs)? Why? @ -Ultrasound considered, patient is not having any vaginal bleeding or cramping at this time. What meds were considered but not given or refused? Why? @ -None Did you discuss the management of the patient with other professionals (professionals i.e. , PA, COMMERCIAL FRONT LOAD OPERATOR, lab, RT, psych nurse, high school social studies teacher, bottled beverage inspector, teacher, ship's officer, pillowcase cutter)? Give summary @ -No Was smoking cessation discussed for >3mins.? @ -No Was critical care preformed (if so, how long)? @ -No Were there social determinants of health that impacted care today? How? (Homelessness, low income, unemployed, alcoholism, drug addiction, transportation, low edu. Level, literacy, decrease access to med. care, intermediate, rehab)? @ -No Was there de-escalation of care discussed even if they declined (Discuss DNR or withdrawal of care, Hospice)? DNR status @ -No What co-morbidities impacted this encounter? (DM, HTN, Smoking, COPD, CAD, Cancer, CVA, ARF, Chemo, Hep., AIDS, mental health diagnosis, sleep apnea, morbid obesity)? @ -None Was patient admitted / discharged? Hospital course, mention meds given and route, prescriptions, significant lab abnormalities, going to OR and other pertinent info. @ -discharged. 23-year-old female presents to the emergency department for evaluation of lightheadedness, nausea, vomiting in . Laboratory studies obtained. CBC shows WBC 4.9, hemoglobin 10.7 bleed due to patient's gravid state; CMP shows sodium 135, potassium 3.6, creatinine 0.39, LFTs within normal limits; amylase and lipase unremarkable. Quantitative hCG 89,537.1; UA shows cloudy urine, trace protein, positive nitrite, large considered esterase. Patient will be treated for urinary tract infection and urine will be sent for culture. Patient given a dose of Zofran and a liter fluids in the emergency department along with Tylenol for her symptoms which improved. Discussed results with patient and findings of urinary tract infection. 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 Patient understanding. Will plan. Patient stable at time of discharge. Case discussed with Dr. Puentes Undiagnosed new problem with uncertain prognosis? @ -No Drug Therapy requiring intensive monitoring for toxicity (Heparin, Nitro, Insulin, Cardizem)? @ -No Were any procedures done? @ -No Diagnosis/symptom? @ -Urinary tract infection Acute, or Chronic, or Acute on Chronic? @ -Acute Uncomplicated (without systemic symptoms) or Complicated (systemic symptoms)? @ -Uncomplicated Side effects of treatment? @ -No Exacerbation, Progression, or Severe Exacerbation? @ -No Poses a threat to life or bodily function? How? (Chest pain, USA, MD, pneumonia, PE, COPD, DKA, ARF, appy, cholecystitis, CVA, Diverticulitis, Homicidal, Suicidal, threat to staff... and all critical care pts) @ -No - Lab Data Result diagrams: 07/04/23 16:52 07/04/23 16:52 Lab Results 07/04/23 07/04/23 07/04/23 Range/Units 16:52 16:52 16:52 WBC 4.9 (3.8-10.6) k/uL RBC 4.99 (3.80-5.40) m/uL Hgb 10.7 L (11.4-16.0) gm/dL Hct 35.0 (34.0-46.0) % MCV 70.1 L (80.0-100.0) fL MCH 21.5 L (25.0-35.0) pg MCHC 30.7 L (31.0-37.0) g/dL RDW 16.9 H (11.5-15.5) % Plt Count 216 (150-450) k/uL MPV 7.7 Neutrophils % 61 % Lymphocytes % 29 % Monocytes % 6 % Eosinophils % 1 % Basophils % 0 % Neutrophils # 2.9 (1.3-7.7) k/uL Lymphocytes # 1.4 (1.0-4.8) k/uL Monocytes # 0.3 (0-1.0) k/uL Eosinophils # 0.1 (0-0.7) k/uL Basophils # 0.0 (0-0.2) k/uL Hypochromasia Marked Anisocytosis Slight Microcytosis Marked Sodium 135 L (137-145) mmol/L Potassium 3.6 (3.5-5.1) mmol/L Chloride 108 H (98-107) mmol/L Carbon Dioxide 20 L (22-30) mmol/L Anion Gap 7 mmol/L BUN 5 L (7-17) mg/dL Creatinine 0.39 L (0.52-1.04) mg/dL Est GFR (CKD-EPI)AfAm >90 (>60 ml/min/1.73 sqM) Est GFR (CKD-EPI)NonAf >90 (>60 ml/min/1.73 sqM) Glucose 85 (74-99) mg/dL Calcium 8.9 (8.4-10.2) mg/dL Total Bilirubin 0.3 (0.2-1.3) mg/dL AST 16 (14-36) U/L ALT 12 (4-34) U/L Alkaline Phosphatase 49 (38-126) U/L Total Protein 7.1 (6.3-8.2) g/dL Albumin 3.7 (3.5-5.0) g/dL Amylase 57 (30-110) U/L Lipase 42 (23-300) U/L HCG, Quant 53183.1 mIU/mL Urine Color Light Yellow Urine Appearance Cloudy H (Clear) Urine pH 5.5 (5.0-8.0) Ur Specific [place] 1.025 (1.001-1.035) Urine Protein Trace H (Negative) Urine Glucose (UA) Negative (Negative) Urine Ketones Negative (Negative) Urine Blood Negative (Negative) Urine Nitrite Positive H (Negative) Urine Bilirubin Negative (Negative) Urine Urobilinogen <2.0 (<2.0) mg/dL Ur Leukocyte Esterase Large H (Negative) Urine RBC <1 (0-5) /hpf Urine WBC 33 H (0-5) /hpf Ur Squamous Epith Cells 6 H (0-4) /hpf Urine Bacteria Many H (None) /hpf Urine Mucus Few H (None) /hpf Disposition Clinical Impression: Urinary tract infection Disposition: HOME SELF-CARE Condition: Stable Instructions (If sedation given, give patient instructions): Urinary Tract Infection in Women (ED) Additional Instructions: Please molded goods spot picker on antibiotics and take to completion. Follow up with your MEDICAL TECHNOLOGIST [facility]EMATOLOGY and primary care provider. Return to the emergency department for new or worsening symptoms. Prescriptions: Cephalexin [Keflex] 500 mg PO BID #20 cap Is patient prescribed a controlled substance at d/c from ED?: No Referrals: None,Stated [Primary Care Provider] - 1-2 days Forms: Area PCPs
[2023-07-04] MEDS ORDERED: SODIUM CHLORIDE 0.9% 2,000 ML IV ONE (16:14)
[2023-07-04] MEDS ORDERED: ONDANSETRON 4 MG/2 ML VIAL IVP STA (16:14)
[2023-07-04 17:14] LABS: Anisocytosis Slight; Basophils % (A) 0 %; Eosinophils # (A) 0.1 k/uL (0-0.7); Eosinophils % (A) 1 %; HGB 10.7 gm/dL (11.4-16.0); Hypochromasia Marked; Lymphocytes # (A) 1.4 k/uL (1.0-4.8); Lymphocytes % (A) 29 %; MCH 21.5 pg (25.0-35.0); MCHC 30.7 g/dL (31.0-37.0); MCV 70.1 fL (80.0-100.0); Mean Platelet Volume 7.7; Microcytosis Marked; Monocytes # (A) 0.3 k/uL (0-1.0); Monocytes % (A) 6 %; Neutrophils # (A) 2.9 k/uL (1.3-7.7); Neutrophils % (A) 61 %; Platelet Count 216 k/uL (150-450); RBC 4.99 m/uL (3.80-5.40); RDW 16.9 % (11.5-15.5); WBC 4.9 k/uL (3.8-10.6)
[2023-07-04] MEDS ORDERED: ACETAMINOPHEN TAB 500 MG TAB PO STA (17:34)
[2023-07-04 17:54] LABS: ALT 12 U/L (4-34); AST 16 U/L (14-36); African American GFR (CKD) >90 (>60 ml/min/1.73 sqM); Albumin 3.7 g/dL (3.5-5.0); Alkaline Phosphatase 49 U/L (38-126); Amylase 57 U/L (30-110); Anion Gap 7 mmol/L; Blood Urea Nitrogen 5 mg/dL (7-17); Calcium 8.9 mg/dL (8.4-10.2); Carbon Dioxide 20 mmol/L (22-30); Chloride 108 mmol/L (98-107); Glucose 85 mg/dL (74-99); Lipase 42 U/L (23-300); Non-African American GFR(CKD) >90 (>60 ml/min/1.73 sqM); Potassium 3.6 mmol/L (3.5-5.1); Sodium 135 mmol/L (137-145); Total Bilirubin 0.3 mg/dL (0.2-1.3); Total Protein 7.1 g/dL (6.3-8.2)
[2023-07-04 18:37] LABS: Appearance,Urine Cloudy (Clear); Bacteria,Urine Many /hpf; Bilirubin,Urine Negative (Negative); Blood,Urine Negative (Negative); Color,Urine Light Yellow; Glucose,Urine (UA) Negative (Negative); Ketones,Urine Negative (Negative); Leukocyte Esterase,Urine Large (Negative); Mucus,Urine Few /hpf; Nitrite,Urine Positive (Negative); PH, Urine 5.5 (5.0-8.0); Protein,Urine Trace (Negative); RBC,Urine <1 /hpf (0-5); Specific Gravity,Urine 1.025 (1.001-1.035); Squamous Epithelial Cell,Urine 6 /hpf (0-4); Urobilinogen,Urine <2.0 mg/dL (<2.0); WBC,Urine 33 /hpf (0-5)
[2023-07-04 18:57] LABS: HCG,Quantitative Serum 89537.1 mIU/mL
[2023-07-04 20:10] VITALS: BP 121/69; PULSE 81
== END 2023-07-04 19:51 | disposition home or self-care (01) ==
LOC: EC 13:50
DX: O23.41 Unspecified infection of urinary tract in pregnancy, first trimester (principal); N39.0 Urinary tract infection, site not specified; B96.20 Unspecified Escherichia coli [E. coli] as the cause of diseases classified elsewhere; O99.511 Diseases of the respiratory system complicating pregnancy, first trimester; J45.909 Unspecified asthma, uncomplicated; O99.331 Smoking (tobacco) complicating pregnancy, first trimester; F17.290 Nicotine dependence, other tobacco product, uncomplicated; O99.321 Drug use complicating pregnancy, first trimester; F12.90 Cannabis use, unspecified, uncomplicated; Z3A.08 8 weeks gestation of pregnancy
CPT/HCPCS: 36415; 93005; 80053; 82150; 83690; 85025; 81001; 84702; 87086; 87077; 87186; 99285; 96374; 96361 ×2; J2405